=== PATIENT | female | born 1960 | race Caucasian/White ===

== ENCOUNTER → 2017-02-09 | Day surgery (SDC) | payer OTHER ==
[~2017-02-09] VITALS: Ht 162.6 cm; Wt 72.0 kg
[~2017-02-09] MED LIST: ACETAMINOPHEN 1000 MG/100 ML VIAL IV ONE; BETAMETHASONE SOD PHOS/ACETATE SUSP 30 MG/5 ML VIAL ONE; BUPIVACAINE HCL PF 0.5% 30 ML VIAL ONE; DEXT 5%-NACL 0.45% 1000 ML INJ 1,000 ML IV SCH; IBUP800T23 PO; LACTATED RINGER'S 1000 ML INJ 1,000 ML IV ONE; LACTATED RINGER'S 1000 ML INJ 1,000 ML ONE; LISI-515 PO; MORPHINE SULFATE 4 MG/ML INJ ONE; OMEP20TA PO; ONDANSETRON HCL 4 MG/2 ML VIAL IV PUSH ONE; PHENYLEPH/NS 1000 MCG/10 ML SYR IV ONE; PRED5TAB PO; PROPOFOL 200 MG/20 ML AMP IV ONE; SIMV20TA PO; SODIUM CHLORIDE 0.9% FLUSH 5 ML FLUSH IVF PRN; SODIUM CHLORIDE 0.9% FLUSH 5 ML FLUSH IVF SCH; TRIAMCINOLONE ACETONIDE 40 MG/ML VIAL ONE; ceFAZolin 2 GM PREMIX 50 ML ONE; ePHEDrine/NS 25 MG/5 ML SYR IV ONE; fentaNYL CITRATE 250 MCG/5 ML AMP ONE
[2017-02-09 07:09] LABS: HEMATOCRIT 43.9 % (35.0-46.0); MEAN CELL VOLUME 87.6 FL (80.0-100.0); MEAN CORPUSCULAR HGB CONC 34.2 % (32.0-36.0); PLATELET COUNT 244 TH/MM3 (150-450); RED CELL DISTRIBUTION WIDTH 12.4 % (11.6-17.2); REVIEW FLAG FINAL; WHITE BLOOD COUNT 7.9 TH/MM3 (4.0-11.0)
[2017-02-09 07:16] VITALS: BP 145/83; PULSE 72; RESP 20; TEMP 98; O2SAT 96
--- NOTE | 2017-02-09 07:58 | HP.UPD ---
H&P Update Date: Feb 09, 2017 Note The Pre-Admit History and Physical Examination regarding the above named patient was reviewed (including, but not limited to, vital signs, medications, allergies, co-morbid conditions), and upon re-examination it is noted that: Indicated with "X" x - the patient's condition has not significantly changed since the last examination. [] - the patient's condition has changed since the last examination. Changes: Rachna Lang MD Feb 09, 2017 07:57
[2017-02-09 09:36] VITALS: PULSE 93
--- NOTE | 2017-02-09 09:53 | HHI.PR ---
Immediate Post Op Note Procedure Date: Feb 09, 2017 Pre Op Diagnosis: (1) CTS (carpal tunnel syndrome) (2) Ganglion cyst of wrist (3) Osteoarthritis of hand, primary localized Post Op Diagnosis: (1) CTS (carpal tunnel syndrome) (2) Ganglion cyst of wrist (3) Osteoarthritis of hand, primary localized Surgeon: Rachna Lang Animal Care Provider(s): None Procedure: Endoscopic release of the right carpal tunnel. Excision of ganglion cyst of the right wrist. Inject steroid into the left CMC joint. Specimen(s) removed: Ganglion cyst of the right wrist. Anesthesia: General Drains: None Tourniquet time (min at mmHg) 36 minutes at 220 mm Hg. Patient to: PACU Patient Condition: Good Date/Time of Procedure: SEE SURGICAL CARE RECORD Rachna Lang MD Feb 09, 2017 09:52
[2017-02-09 10:15] VITALS: TEMP 98.4
[2017-02-09 11:00] VITALS: BP 138/79; PULSE 82; RESP 16; O2SAT 96
--- NOTE | 2017-02-10 14:16 | MP ---
cc: SKYLA ABEL M.D. DATE OF SURGERY 02/09/2017 PREOPERATIVE DIAGNOSIS 1. Right carpal tunnel syndrome. 2. Ganglion cyst of volar right wrist. 3. 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 POSTOPERATIVE DIAGNOSIS 1. Right carpal tunnel syndrome. 2. Ganglion cyst of volar right wrist. 3. 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 PROCEDURE 1. Endoscopic release of the right carpal tunnel. 2. Excision ganglion cyst of the right wrist. 3. Steroid injection into the left thumb CMC joint. ANESTHESIA General. SURGEON Skyla Abel MD INDICATIONS A 56-year-old female with right carpal tunnel syndrome, a ganglion cyst and a painful left thumb CMC joint. FINDINGS At the completion of the procedure the carpal tunnel had been. In addition, the ganglion cyst which was multiloculated was removed along with its base which appeared to come from the scaphotrapezial joint. TOURNIQUET TIME 36 minutes. PROCEDURE IN DETAIL The patient was seen preoperatively where the site and side were identified and marked. The patient was then taken to the operating, placed in supine position. Her identity was checked against her arm band and the consent form. The site and side confirmed, time-out called prior to beginning the procedure. The right upper extremity was prepped with Hibiclens and draped in the usual sterile fashion. The areas to be incised were outlined with a marking pen and a transverse incision of the distal forearm 1.5 cm proximal to the distal wrist crease. The distal edge of the transverse carpal ligament was identified and marked. In addition, a transverse incision was made over the ganglion cyst. The cyst itself measured approximately 1.1 x 1.2 cm in greatest dimension. The arm was exsanguinated and the tourniquet inflated to 250 mmHg. A #15 blade was used to make an incision in the distal forearm down through the skin, down to the subcutaneous tissue. Under loupe magnification using the spread technique superficial vessels and nerves were identified and retracted exposing the forearm fascia. Using the spread technique the forearm fascia was entered. It was then elevated, the synovial elevator was then used to identify the transverse carpal ligament as well as clean the synovium from it. The obturator cannula apparatus was then introduced into the wound and then just distal to the transverse carpal ligament to the palmar fascia into the subcutaneous plane where separate incision was made the entire apparatus was delivered. The obturator was removed leaving the cannula in place. The scope was then passed from distal to proximal identifying the transverse carpal ligament. Then under direct vision using the scope the transverse carpal ligament was divided. Photos were taken. The obturator was then placed back into the cannula and the entire apparatus was removed. A forearm fasciotomy was then carried out for 2 or 3 cm proximal to the distal wrist incision. A new 15 blade was then used to make a transverse incision of the ganglion cyst, down through the skin, down to the subcutaneous tissue. Using the spread technique superficial vessels, nerves were identified and retracted. The ganglion cyst was identified and carefully from its surrounding structures. Small vessels were cauterized with bipolar cautery. Once the ganglion cyst was removed the root was identified and this was also removed with a rongeur. Provocative moves were negative to identify any additional ganglion tissue and the wound was copiously irrigated with saline. All wounds were then injected with bupivacaine 0.5% plain and closed with Dermabond. Once the glue had dried, the tourniquet was released after 36 minutes of tourniquet time. Pressure was applied. After several minutes there was no evidence of any oozing or swelling and a dressing was applied using 4x4s, hand wrap and a palmarly based splint. Attention was then turned to the left thumb CMC joint which was prepped with alcohol. Bupivacaine 0.5% plain was injected into the joint, approximately 1 to 2 ml and then 0.4 ml of Celestone was injected into the CMC joint. The area was then dressed with a Band-Aid. The patient was then taken from the operating room to the recovery room in satisfactory condition having tolerated the procedure well. Postoperative instructions include keeping the arm elevated, keeping it clean and dry and returning in several days for follow up. MD NANCY Stoddard/NISHANT /9:58 AM /1:51 PM XI
--- NOTE | 2017-02-10 16:02 | EKG ---
Date Performed: 02/09/2017 Time Performed: 07:10:04 PTAGE: 56 years EKG: Sinus rhythm . Low QRS voltages in precordial leads Borderline ECG NO PREVIOUS TRACING DOCTOR: Brown Pichardo Interpretating Date/Time 02/10/2017 16:00:59
== END | disposition home or self-care (01) ==
LOC: PHSDC 06:12
PROVIDERS: ATTEND Specialist
DX: G56.01 Carpal tunnel syndrome, right upper limb (principal); M67.431 Ganglion, right wrist; M19.042 Primary osteoarthritis, left hand; I10 Essential (primary) hypertension; R94.31 Abnormal electrocardiogram [ECG] [EKG]
CPT/HCPCS: 01810; 20600; 25111; 29848; 36415; 85027; 88304; 93005; J0131; J0690; J0702; J2270; J2370; J2405; J3010; J7120; 88305; J3301